=== PATIENT | female | born 1970 | race Caucasian/White ===

== ENCOUNTER 2025-03-02 17:03 | Emergency (ER) | payer OTHER, SELFPAY ==
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
[2025-03-02 17:21] VITALS: BP 125/81; PULSE 98; RESP 18; TEMP 36.7; O2SAT 97; BMI 21.6
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
--- NOTE | 2025-03-02 17:38 | ECG_ITS ---
APPROVED REPORT Exam: Resting ECG HR:81 bpm ECG Measurements Heart Rate [address] 140 P 28 QRSd 81 QRS 38 QT 336 T 9 QTc 373 Conclusion SINUS RHYTHM NONSPECIFIC T-WAVE ABNORMALITY BORDERLINE ECG UNCONFIRMED REPORT Electronically signed by : LETICIA POWELL, 03/02/2025 23:17:30
[2025-03-02 17:56] LABS: Hematocrit 34.6 % (37.0-47.0); Hemoglobin 11.4 g/dL (12.2-16.2); Immature Granulocytes % 0.3 %; Mean Corpuscular HGB Conc 32.9 g/dL (31.8-35.4); Mean Corpuscular Hemoglobin 28.6 pg (27.0-31.2); Mean Corpuscular Volume 86.9 fl (81-99); Nucleated Red Blood Cells % 0 %; Platelet Count 221 K/mm3 (142-424); Red Blood Count 3.98 M/mm3 (4.20-5.40); Red Cell Distribution Width-SD 44.9 fL; White Blood Count 7.2 K/mm3 (4.8-10.8)
[2025-03-02] MEDS: 0.9 % SODIUM CHLORIDE 50 ML VIAL IV (18:01)
[2025-03-02] MEDS: IOPAMIDOL-370 (76%);100ML BOTTLE 80 ML IV (18:01)
[2025-03-02] MEDS: SODIUM CHLORIDE 0.9% 10ML SYR (RAD ONLY) 10 ML IV (18:01)
--- NOTE | 2025-03-02 18:14 | PC.NURSE ---
patient returned from CT via wheelchair
[2025-03-02 18:17] LABS: Albumin Level 4.3 g/dl (3.5-5.0); Chloride 100 mmol/L (98-107); Potassium 4.2 mmoL/L (3.5-5.1); Sodium 133 mmol/L (136-145)
[2025-03-02 18:18] LABS: INR 0.98 (0.9-1.1); Prothrombin Time 10.9 seconds (10.1-12.5)
[2025-03-02 18:19] LABS: Alanine Aminotransferase 11 U/L (12-78); Aspartate Amino Transferase 24 U/L (14-36); Blood Urea Nitrogen 12 mg/dl (7-17); Creatinine Clearance Estimated 62 mL/min (50-200); Creatinine,Serum 1.00 mg/dl (0.52-1.04); Estimated Glomerular Filt Rate 58 ml/min (>60); GFR (African American) 70 ML/MIN (>60)
[2025-03-02 18:20] LABS: Albumin/Globulin Ratio 1.6 (1.1-1.8); Alkaline Phosphatase 58 U/L (38-126); Anion Gap 11.2 mEq/L (5-15); Bilirubin,Total 0.3 mg/dl (0.2-1.3); Calcium 9.0 mg/dl (8.4-10.2); Carbon Dioxide 26 mmol/L (22.0-30.0); Globulin 2.7 g/dL (1.3-3.2); Glucose 84 mg/dl (74-100); Lipase 54 U/L (23-300); Total Protein,Serum 7.0 g/dl (6.3-8.2)
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
[2025-03-02 18:50] LABS: Troponin I < 0.01 ng/ml (0.00-0.034)
[2025-03-02 19:40] VITALS: BP 138/48; PULSE 68; RESP 16; TEMP 36.7; O2SAT 98
== END 2025-03-02 19:42 | disposition left against medical advice (07) ==
PROVIDERS: Emergency Provider Student in an Organized Health Care Education/Training Program
DX: R07.89 Other chest pain (principal); V87.7XXA Person injured in collision between other specified motor vehicles (traffic), initial encounter
CPT/HCPCS: 70450; 71275; 72125; 72128; 72131; 73090; 73110; 73130; 73590; 74174; 80053; 83690; 84484; 85025; 85610; 93005; 99283; 99285; Q9967